=== PATIENT | male | born 1945 | race Caucasian/White ===

== ENCOUNTER 2018-03-06 12:29 | Emergency (ER) | payer MEDICARE, OTHER ==
[2018-03-06 13:37] LABS: ALBUMIN 4.2 g/dL (3.2-5.5); ALBUMIN/GLOBULIN RATIO 1.6 (1.0-2.2); BILIRUBIN,TOTAL 0.6 mg/dL (0.2-1.0); CALCIUM 9.4 mg/dL (8.5-10.3); CREATININE 1.1 mg/dL (0.6-1.2); TOTAL PROTEIN 6.8 g/dL (6.7-8.2)
--- NOTE | 2018-03-06 14:25 | ED Physician Documentation ---
History of Present Illness - Stated complaint Stated Complaint: HBP - Chief complaint Chief Complaint: General - Additonal information Additional information: hx from pt 72 male to ED with high blood pressure known HTN on ,etoprolol ER succinate 25 mg PO QD and irbesartan/HCTZ 150/12.5 QD last few days BP as high as 200 systolic one day he forgot hsi meds but still running high even when compliant with meds has a mild posterior WINN no CP SOA numbness weakness called his [facility] PMD and was advised to come to the ED Review of Systems Constitutional: denies: Fever Cardiac: denies: Chest pain / pressure Respiratory: denies: Dyspnea Neurologic: reports: Headache Endocrine: denies: Easy bruising / bleeding Immunocompromised: denies: Immunocompromised PD PAST MEDICAL HISTORY - Past Medical History Other Past Medical History: Melanoma, prostate ca - Past Surgical History Past Surgical History: Yes Ortho: Shoulder arthroplasty - Present Medications Home Medications: Ambulatory Orders Medication Instructions Recorded Confirmed Irbesartan/Hydrochlorothiazide 1 each PO DAILY 03/06/18 03/06/18 [Irbesartan-Hctz 150-12.5 mg Tb] Irbesartan/Hydrochlorothiazide 1 each PO DAILY #10 tablet 03/06/18 [Irbesartan-Hctz 300-12.5 mg Tb] Metoprolol Succinate 25 mg PO DAILY PM 03/06/18 03/06/18 - Allergies Allergies/Adverse Reactions: Allergies Allergy/AdvReac Type Severity Reaction Status Date / Time Penicillins Allergy Edema Verified 03/06/18 12:35 - Social History Does the pt smoke?: No Smoking Status: Never smoker Does the pt drink ETOH?: Yes ETOH Use: Wine Does the pt have substance abuse?: No - Immunizations Immunizations are current?: Yes PD ED PE NORMAL - Vitals Vital signs reviewed: Yes - HEENT HEENT: PERRL, EOMI - Neck Neck: Supple, no meningeal sign - Cardiac Cardiac: RRR - Respiratory Respiratory: No respiratory distress, Clear bilaterally - Neuro Neuro: Alert and oriented X 3, No motor deficit, No sensory deficit, Normal speech Results - Vitals Vitals: Vital Signs - 24 hr 03/06/18 12:32 Temperature 36.5 C Heart Rate 62 Respiratory 15 Rate Blood Pressure 167/92 H O2 Saturation 100 Oxygen O2 Source Room air - EKG (time done) 1259 Rate: Rate (enter#) (61) Rhythm: NSR Mills: LAD Intervals: 1st degree AVB Ischemia: Normal ST segments - Labs Labs: Laboratory Tests 03/06/18 03/06/18 13:17 13:17 Sodium 128 L Potassium 4.4 Chloride 91 L Carbon Dioxide 30 Anion Gap 7.0 BUN 21 H Creatinine 1.1 Estimated GFR (MDRD) 66 L Glucose 115 H Calcium 9.4 Total Bilirubin 0.6 AST 30 ALT 21 Alkaline Phosphatase 66 Troponin I < 0.04 Total Protein 6.8 Albumin 4.2 Globulin 2.6 Albumin/Globulin Ratio 1.6 Lipase 39 PD MEDICAL DECISION MAKING - ED course ED course: mild posterior WINN s neuro deficits likely related to high BP, no suggestive of SAH etc - do not feel CT neded chem trop and EKG to look for end organ dysfkn, only notable for hyponatremia would do well to increase BP control already has HR of 60 which preculdes in c BB or adding CCB HCTZ could be inceased but already has low Na so will increase irbesartan to 300 - Sepsis Event Vital Signs: Vital Signs - 24 hr 03/06/18 12:32 Temperature 36.5 C Heart Rate 62 Respiratory 15 Rate Blood Pressure 167/92 H O2 Saturation 100 Oxygen O2 Source Room air Departure - Departure Disposition: Home, Self Care Clinical Impression: Hypertension Qualifiers: Hypertension type: unspecified Qualified Code(s): I10 - Essential (primary) hypertension Condition: Good Instructions: ED Hypertension Conf Out Of Control Prescriptions: Irbesartan/Hydrochlorothiazide [Irbesartan-Hctz 300-12.5 mg Tb] 1 each PO DAILY #10 tablet Comments: The EKG and labs were fine without evidence of organ damage from the high blood pressure As we discussed I do not think you need a CT scan of your head because the headache is mild and you have a normal neurologic exam. You sodium level was a bit low - this is likelt due to the HCTZ diuretic you take for your blood pressure - but it is not dangerously low and you need the blood pressure control - you should follow up with your PMD to get the level rechecked though and if it stays low you may need some more work up as there are other medical conditions that can cause low sodium So for now i am changing your blood pressure medication from irbesartan/HCTZ 150 /12.5 to 300/12.5 I only wrote for 10 days worconstanceh because I want to see how it works for you and want you to monitor your blood pressure at home and contact your PMD in the next day or two to discuss medications going forward.
[2018-03-06] MEDS ORDERED: ACETAMINOPHEN 325 MG TABLET PO STA (14:34)
[2018-03-06 14:53] VITALS: BP 157/77
== END 2018-03-06 14:53 | disposition home or self-care (01) ==
LOC: ED 12:29
DX: I10 Essential (primary) hypertension (principal)
CPT/HCPCS: 36415; 80053; 83690; 84484; 93005; 99283; A9270

== ENCOUNTER 2020-05-13 10:00 | Outpatient (CLI) | payer MEDICARE, OTHER ==
--- NOTE | 2020-05-14 15:47 | XRAY Report ---
PROCEDURE: Cervical Spine 2 View INDICATIONS: SPINAL STENOSIS TECHNIQUE: 3 view(s) of the cervical spine were acquired. COMPARISON: None. FINDINGS: Bones: No fractures or dislocations to the T2 level. The lateral masses of C1 appear intact on the odontoid view. No suspicious bony lesions. Mild straightening of normal cervical lordosis. Multilev el cervical spondylosis with degenerative endplate changes and small endplate osteophyte formation. F indings are most pronounced from C4-5 through C6-7. Associated bilateral facet arthropathy most prono unced in the mid and lower cervical spine. Soft tissues: No prevertebral soft tissue swelling. IMPRESSION: 1. Cervical spine without acute radiographic abnormalities. 2. Multilevel cervical spondylosis. 3. Straightening of cervical lordosis likely related to positioning and/or concurrent muscle spasms. Reviewed by: Meri Martinez MD on 05/14/2020 3:46 PM PDT Approved by: Meir Martinez MD on 05/14/2020 3:46 PM PDT Station ID: [id number]
== END 2020-05-13 10:01 | disposition home or self-care (01) ==
LOC: DI 10:00
PROVIDERS: ATTEND Neurological Surgery
DX: M47.812 Spondylosis without myelopathy or radiculopathy, cervical region (principal); M48.02 Spinal stenosis, cervical region
CPT/HCPCS: 72040

== ENCOUNTER 2020-06-15 21:47 | Emergency (ER) | payer MEDICARE, OTHER ==
--- NOTE | 2020-06-15 23:40 | ED Physician Documentation ---
PD HPI ABD PAIN - Stated complaint Stated Complaint: CONSTIPATION - Chief complaint Chief Complaint: General - History obtained from History obtained from: Patient - History of Present Illness Timing - onset: How many days ago (3) Timing - details: Gradual onset Pain level now: 3 Quality: Cramping Location: Other (across lower abdomen) Associated symptoms: Constipation Recently seen: Surgery - Additional information Additional information: patient c/o "I'm extremely constipated", manifest as episodic cramping lower abdominal pain with urge to defecate but only small BM yesterday and 2 days ago but none today. He had been taking oxycodone prior to neck surgery performed yesterday, as well as doses taken yesterday but none today (pain is tolerable today and he is concerned that more doses of the oxycodone will worsen the constipation). He has taken several doses of colace as instructed but has not tried other medications such as enemas or MOM. Review of Systems Constitutional: denies: Fever GI: reports: Abdominal Pain, Constipation. denies: Abdominal Swelling, Nausea, Vomiting, Diarrhea : denies: Dysuria, Frequency PD PAST MEDICAL HISTORY - Past Medical History Past Medical History: Yes - Past Surgical History Past Surgical History: Yes Ortho: Shoulder arthroplasty, Other (cervical spine surgery yesterday, "removed a disc" (per patient)) - Present Medications Home Medications: Ambulatory Orders Medication Instructions Recorded Confirmed Irbesartan/Hydrochlorothiazide 1 each PO DAILY #10 tablet 03/06/18 06/15/20 [Irbesartan-Hctz 300-12.5 mg Tb] Metoprolol Succinate 25 mg PO DAILY PM 03/06/18 06/15/20 Citalopram [CeleXA] 1 tab PO DAILY 06/15/20 06/15/20 amLODIPine [Norvasc] 1 tab PO DAILY 06/15/20 06/15/20 - Allergies Allergies/Adverse Reactions: Allergies Allergy/AdvReac Type Severity Reaction Status Date / Time Penicillins Allergy Edema Verified 06/15/20 21:54 - Social History Does the pt smoke?: No Smoking Status: Never smoker Does the pt drink ETOH?: Yes Does the pt have substance abuse?: No - Immunizations Immunizations are current?: Yes PD ED PE NORMAL - Vitals Vital signs reviewed: Yes - General General: Alert and oriented X 3, No acute distress, Well developed/nourished - Abdomen Abdomen: Soft, Non tender, Non distended PD ED PE EXPANDED - Abdomen Abdomen: Decreased BS Results - Vitals Vitals: Vital Signs - 24 hr 06/15/20 06/15/20 06/16/20 21:50 21:52 00:00 Temperature 36.3 C L 36.5 C 36.5 C Heart Rate 66 66 68 Respiratory 18 18 16 Rate Blood Pressure 178/81 H 178/81 H 160/80 H O2 Saturation 98 98 100 Oxygen O2 Source Room air PD MEDICAL DECISION MAKING - ED course Complexity details: considered differential, d/w patient ED course: HPI c/w constipation and PE does not suggest more likely alternative diagnosis and thus no emergent testing performed. Plan is glycerin suppository and magnesium citrate to take home and use once he is home, return if worse in any way. I also instructed him to try fleets and milk of magnesia if his symptoms aren't worse but if he does not have adequate results by morning Departure - Departure Disposition: 01 Home, Self Care Clinical Impression: Constipation Condition: Good Instructions: ED Constipation Follow-Up: Melchor Graham MD [Primary Care Provider] - Comments: When you get home tonight, insert the glycerin suppository and then drink the magnesium citrate. I recommend drinking one-third of the magnesium citrate and waiting 2-3 hours. If you do not have a large BM, drink another third and repeat this a third time if still no BM. If this does not result in BM, you can try Fleet's enemas and/or milk of magnesia. Discharge Date/Time: 06/16/20 00:06
[2020-06-15] MEDS ORDERED: GLYCERIN ADULT SUPP PR STA (23:59)
[2020-06-15] MEDS ORDERED: MAGNESIUM CITRATE 296 ML BOTTLE PO STA (23:59)
[2020-06-16 00:06] VITALS: BP 160/80
== END 2020-06-16 00:06 | disposition home or self-care (01) ==
LOC: ED 21:47
DX: K59.00 Constipation, unspecified (principal)
CPT/HCPCS: 99282; A9270

== ENCOUNTER 2020-07-19 10:56 | Outpatient (CLI) | payer MEDICARE, OTHER ==
--- NOTE | 2020-07-19 17:28 | XRAY Report ---
PROCEDURE: Cervical Spine 2 View INDICATIONS: F/U CERVICAL ARTHROPLASTY TECHNIQUE: 3 view(s) of the cervical spine were acquired. COMPARISON: None. FINDINGS: Bones: No fractures or dislocations to the T1 level. C6-C7 intervertebral disc prosthesis noted. Th e lateral masses of C1 appear intact on the odontoid view. No suspicious bony lesions. Mild C3 C4-C5 and C5-C6 degenerative disc disease. Mild C2-C3, C3-C4, C4-C5 and C5-C6 facet arthropathy. Soft tissues: No prevertebral soft tissue swelling. IMPRESSION: 1. 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 2. Mild multilevel degenerative disease. 3. Mild multilevel facet arthropathy. 4. No acute osseous lesion. If there is continued clinical concern for pathology, then MRI should be considered for further evaluation. Reviewed by: Doreen Sam MD, PhD on 07/19/2020 5:27 PM PST Approved by: Doreen Sam MD, PhD on 07/19/2020 5:27 PM PST Station ID: [id number]
== END 2020-07-19 10:57 | disposition home or self-care (01) ==
LOC: DI 10:56
PROVIDERS: ATTEND Neurological Surgery
DX: M50.321 Other cervical disc degeneration at C4-C5 level (principal)